=== PATIENT | male | born 1945 | race American Indian/Alaskan Native ===

== ENCOUNTER 2019-03-10 07:58 | Day surgery (SDC) | payer MEDICARE ==
[~2019-03-10 07:58] MED LIST: PROPOFOL 200 MG/20 ML VIAL IV ONE; SODIUM CHLORIDE 0.9% 1000 ML 1,000 ML IV SCH
--- NOTE | 2019-03-10 08:32 | Anesthesia Consultation ---
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) Home Oxygen Therapy: Yes Hx Pneumonia: No Hx Sleep Apnea: No - Cardiovascular System Hx Hypertension: Yes Hx Coronary Artery Disease: No Hx Heart Attack/AMI: No Hx Angina: No Hx Percutaneous Transluminal Coronary Angioplasty (PTCA): No Hx Cardia Arrhythmia: No Hx Pacemaker: No Hx Internal Defibrillator: No Hx Valvular Heart Disease: No Hx Heart Murmur: No Hx Peripheral Vascular Disease: No - Central Nervous System Hx Neuromuscular Disorder: No Hx Seizures: No CVA: No Hx Back Pain: No Hx Psychiatric Problems: Yes (PTSD) - Gastrointestinal Hx Ulcer: No Hx Gastroesophageal Reflux Disease: Yes (takes tums as needed ) - Endocrine Hx Renal Disease: No Hx End Stage Renal Disease: No Hx Cirrhosis: No Hx Liver Disease: No Hx Insulin Dependent Diabetes: No Hx Non-Insulin Dependent Diabetes: No Hx Thyroid Disease: No Hx Hypothyroidism: No Hx Hyperthyroidism: No - Hematic Hx Anemia: No Hx Sickle Cell Disease: No - Other Systems Hx Alcohol Use: No (past ETOH use) Hx Substance Use: No Hx Cancer: No Hx Obesity: No
--- NOTE | 2019-03-10 08:35 | Anesthesia Day of Surgery ---
Anesthesia Day of Surgery - Day of Surgery Patient Examined: Yes Patient H&P Reviewed: Yes Patient is NPO: Yes Beta Blockers: No Pulmonary Clearance: Yes
--- NOTE | 2019-03-10 09:55 | Short Stay Summary ---
Short Stay Documentation Date of service: 03/10/19 Narrative H&P: The patient presents for surveillance colonoscopy for hx of polyps. Last study 5 years ago. - History Past Medical History: COPD (On continuous oxygen therapy), hypertension Past Surgical History: No surgical history Social history: smoking (quit smoking 3 years ago), no alcohol abuse - Allergies and Medications Current Medications: Allergies Sulfa (Sulfonamide Antibiotics) Allergy (Verified 03/09/19 16:21) Unknown Active Medications Sodium Chloride (Nacl 0.9% 1000 Ml) 1,000 mls @ 50 mls/hr IV DIRECT CHERIE Last Admin: 03/10/19 09:09 Dose: 50 mls/hr Documented by: - Physical exam General appearance: no acute distress, well-nourished Integumentary: no rash, no growths, no abnormal pigmentation HEENT: Atraumatic, PERRLA, EOMI, Mucous membr. moist/pink Lungs: Clear to auscultation, Other (Diminished breath sounds bilaterally) Breasts: deferred Heart: Regular rate, Normal S1, No murmurs Gastrointestinal: normoactive bowel sounds, no tenderness, no distended, no masses, no guarding, no organomegaly Male Genitourinary: deferred Rectal Exam: normal exam-external/orifice, no mass Extremities: no ischemia, pulses intact, pulses symmetrical, No edema, normal temperature, normal color, Full ROM Neurological: Normal gait, Normal speech, Strength at 5/5 X4 ext, Normal tone, Sensation intact, Cranial nerves 3-12 NL - Brief post op/procedure progress note Date of procedure: 03/10/19 Findings: see dictation Estimated blood loss: none Pathology: none Condition: stable - Disposition Condition at discharge: Good Disposition: DC-01 TO HOME OR SELFCARE - Discharge Diagnoses (1) History of colonic polyps Status: Acute Short Stay Discharge Plan Activity: other (no driving for 24 hours.) Weight Bearing Status: Full Weight Bearing Diet: regular Follow up with: LV CASEY MD [Primary Care Provider] - 7 Days
--- NOTE | 2019-03-10 09:57 | Operative Report ---
Operative Report Operative Report: Date of procedure: 03/10/2019 Preprocedure diagnosis: History of colon polyps, last study 5 years ago. Post procedure diagnosis: Normal study with no recurrent polyps. Procedure: Colonoscopy to the cecum Endoscopist: Dr. Escalera Anesthesia: Monitored anesthesia care per anesthesia department Estimated blood loss: 0 Medications: Monitored anesthesia care. See separate report by anesthesia for details. After careful discussion of the nature and purpose of the procedure as well as details of the technique risks benefits and alternatives the patient gave consent. Please see recent history and physical from the office. The patient was placed in the left lateral decubitus position and medicated per anesthesia. A rectal exam was performed sphincter tone was normal there were no masses palpable. The Olympus colonoscope was passed transanally and advanced under continuous direct vision without difficulty to the cecum. The colon was well prepared. The cecum was normal. The ascending colon was normal and on forward and retroflexed views. The transverse colon, descending colon, and sigmoid colon were normal. The rectum was normal on forward and retroflexed views. The procedure was well-tolerated overall and the patient was observed in recovery. Conclusions: Normal colonoscopy to the cecum. Plan: Consider repeat colonoscopy in 5 years, health permitting. Signed electronically: Willimas Escalera M.D.
[2019-03-10 10:39] VITALS: BP 119/83
--- NOTE | 2019-03-10 12:20 | Post Anesthesia Evaluation ---
- Post Anesthesia Evaluation Patient Participated: Yes Airway Patent: Yes Stable Respiratory Function: Yes Nausea/Vomiting: No Temp > 96.8F: Yes Pain Manageable: Yes Adequeate Hydration: No Anesthesia Complications: No Block Receding Appropriately: Not Applicable Patient on Ventilator: No
== END 2019-03-10 07:59 | disposition home or self-care (01) ==
LOC: GIO 07:58
PROVIDERS: ATTEND Internal Medicine Gastroenterology
DX: Z12.11 Encounter for screening for malignant neoplasm of colon (principal); E78.00 Pure hypercholesterolemia, unspecified; I10 Essential (primary) hypertension; E11.9 Type 2 diabetes mellitus without complications; J44.9 Chronic obstructive pulmonary disease, unspecified; Z85.46 Personal history of malignant neoplasm of prostate; Z86.010 Personal history of colon polyps; Z87.891 Personal history of nicotine dependence; Z88.2 Allergy status to sulfonamides; Z72.89 Other problems related to lifestyle; Z98.890 Other specified postprocedural states
CPT/HCPCS: G0105; J2704; J7030